=== PATIENT | female | born 1985 | race Caucasian/White ===

== ENCOUNTER 2017-10-11 05:24 | Day surgery (SDC) | payer OTHER ==
[2017-10-10 10:47] LABS: APPEARANCE,URINE CLOUDY; BILIRUBIN,URINE NEGATIVE (NEGATIVE); COLOR,URINE AMBER; GLUCOSE, URINE NEGATIVE (NEGATIVE); KETONES,URINE NEGATIVE (NEGATIVE); LEUKOCYTE ESTERASE,URINE SMALL (NEGATIVE); NITRITE,URINE NEGATIVE (NEGATIVE); PROTEIN,URINE NEGATIVE (NEGATIVE)
[2017-10-10 10:47] LABS: HEMATOCRIT 38.7 % (36.0-47.0); MEAN CORPUSCULAR HGB CONC 33.5 g/dL (32.0-36.0); MEAN CORPUSCULAR VOLUME 87 fl (80-97); PLATELET COUNT 254 10^3/uL (150-450); RED BLOOD COUNT 4.47 10^6/uL (3.72-5.28); RED CELL DISTRIBUTION WIDTH 14.5 % (11.5-14.0); WHITE BLOOD COUNT 8.9 10^3/uL (4.0-10.5)
[~2017-10-11 05:24] MED LIST: LACTATED RINGERS 1000 ML IV PRN; LIDOCAINE 0.5% INJ-PF (5 MG/ML) 50 ML SDV SUBCUT PRN
[2017-10-11] MEDS ORDERED: FENTANYL CITRATE INJ/PF 250 MCG/5 ML AMPULE ONE (07:47)
[2017-10-11] MEDS ORDERED: LIDOCAINE 2% INJ-PF (20 MG/ML) 10 ML AMPUL ONE (07:47)
[2017-10-11] MEDS ORDERED: PROPOFOL INJ 200 MG/20 ML VIAL IV ONE (07:47)
[2017-10-11] MEDS ORDERED: FENTANYL CITRATE INJ/PF 100 MCG/2 ML AMPUL IV PRN ×3 (08:14)
[2017-10-11] MEDS ORDERED: DIPHENHYDRAMINE HCL 50 MG/ML VIAL IV PRN (08:14)
[2017-10-11] MEDS ORDERED: MEPERIDINE HCL/PF INJ 25 MG/1 ML DISP.SYRIN IV PRN (08:14)
[2017-10-11] MEDS ORDERED: ONDANSETRON HCL INJ/PF 4 MG/2 ML SDV IV PRN (08:14)
[2017-10-11] MEDS ORDERED: PROMETHAZINE HCL INJ 25 MG/1 ML VIAL IV PRN ×2 (08:14)
--- NOTE | 2017-10-11 08:31 | Operative Report ---
Operative Report DATE OF SURGERY: 10/11/17 PREOPERATIVE DIAGNOSIS: Cervical incompetence POSTOPERATIVE DIAGNOSIS: Same OPERATION: Sanders cerclage SURGEON: PARIS DELVALLE ANESTHESIA: GA TISSUE REMOVED OR ALTERED: Cervix COMPLICATIONS: None ESTIMATED BLOOD LOSS: 10 cc INTRAOPERATIVE FINDINGS: Normal-appearing cervix PROCEDURE: Patient was taken to the OR and placed in supine position. General anesthesia was induced. She is placed in dorsolithotomy position using Isam stirrups. Perineum and vagina were prepared and draped in sterile fashion. Her bladder was drained with a red rubber catheter. Weighted speculum was placed in the anterior lip cervix grasped with a ring forcep. The bladder reflection was identified. Just below this area assume suture of #1 Ethibond was placed at 12: 00 to 9:00. 9:00 to 6:00. 6:00 to 3:00 and then 3:00 back to 12:00 and tied. This completed a pursestring suture. The cervix felt closed with this suture placement. There was no active bleeding. I felt the suture placement was appropriate and a second suture was not needed.
[2017-10-11] MEDS ORDERED: OXYCODONE-ACETAMINOPHEN 5-325 MG TABLET PO PRN ×2 (08:50→08:51)
[2017-10-11] MEDS ORDERED: RINGERS SOLUTION,LACTATED 1,000 ML IV PRN (08:51)
[2017-10-11] MEDS ORDERED: ACETAMINOPHEN 325 MG TABLET ONE ×2 (08:57→09:10)
--- NOTE | 2017-10-11 09:35 | RADIOLOGY REPORT (SQ) ---
EXAM DESCRIPTION: U/S OB LIMITED COMPLETED DATE/TIME: 10/11/2017 9:25 am REASON FOR STUDY: Cervical Length with FHT O34.32 MATERNAL CARE FOR CERVICAL INCOMPETENCE, SECOND T RIME COMPARISON: None. TECHNIQUE: Limited transabdominal grayscale ultrasound for evaluation of specific requested obstetri ruth ann parameters. LIMITATIONS: None. FINDINGS: CERVICAL LENGTH: 2.4 cm. Closed. FHR: 140 beats per minute. PRESENTATION: Cephalic. OTHER: No other significant findings. IMPRESSION: LIMITED OBSTETRICAL ULTRASOUND WITH MEASURED PARAMETERS DELINEATED ABOVE. Trimester of : Second trimester - 13 weeks 1 day to 27 weeks 6 days. TECHNICAL DOCUMENTATION: JOB ID: [id number] [employer]- All Rights Reserved Reading location - IP/workstation name: [email or web address]
[2017-10-11 10:49] VITALS: BP 122/77
[2017-10-11] MEDS ORDERED: SUCCINYLCHOLINE CHLORIDE INJ 200 MG/10 ML VIAL ONE (15:00)
== END 2017-10-11 10:30 | disposition home or self-care (01) ==
LOC: OROUT 05:24
PROVIDERS: ATTEND Obstetrics & Gynecology
PROC: 0UVC7ZZ Restriction of Cervix, Via Natural or Artificial Opening (ICD-10-PCS; principal; 2017-10-11 08:00)
DX: O34.31 Maternal care for cervical incompetence, first trimester (principal); E28.2 Polycystic ovarian syndrome; F17.210 Nicotine dependence, cigarettes, uncomplicated; Z88.1 Allergy status to other antibiotic agents; Z88.5 Allergy status to narcotic agent
CPT/HCPCS: 36415; 76815; 81001; 82962; 85027; 948; J0330; J2704; J3010; J3490

== ENCOUNTER 2018-03-05 11:45 | Outpatient (CLI) | payer OTHER ==
[2018-03-05 13:03] LABS: APPEARANCE,URINE SLIGHTLY-CLOUDY; BILIRUBIN,URINE NEGATIVE (NEGATIVE); COLOR,URINE YELLOW; GLUCOSE, URINE NEGATIVE (NEGATIVE); KETONES,URINE NEGATIVE (NEGATIVE); LEUKOCYTE ESTERASE,URINE TRACE (NEGATIVE); NITRITE,URINE NEGATIVE (NEGATIVE); PROTEIN,URINE NEGATIVE (NEGATIVE); URINE SPECIFIC GRAVITY 1.013; UROBILINOGEN,URINE NEGATIVE mg/dL (<2.0)
[2018-03-05 13:13] LABS: URINE AMPHETAMINES SCREEN NEGATIVE; URINE BARBITURATES SCREEN NEGATIVE; URINE BENZODIAZEPINES SCREEN NEGATIVE; URINE COCAINE SCREEN NEGATIVE; URINE MARIJUANA (THC) SCREEN NEGATIVE; URINE METHADONE SCREEN NEGATIVE; URINE PHENCYCLIDINE SCREEN NEGATIVE
--- NOTE | 2018-03-05 14:22 | RADIOLOGY REPORT (SQ) ---
EXAM DESCRIPTION: U/S OB LIMITED COMPLETED DATE/TIME: 03/05/2018 2:10 pm REASON FOR STUDY: cerclage in place/ctx COMPARISON: 10/11/2017. TECHNIQUE: Limited transabdominal grayscale ultrasound for evaluation of specific requested obstetri ruth ann parameters. LIMITATIONS: None. FINDINGS: CERVICAL LENGTH: 4.2 cm. Closed. HARSH: Largest pocket 6.3 cm. FHR: 133 beats per minute. PRESENTATION: Cephalic. OTHER: No other significant findings. IMPRESSION: LIMITED OBSTETRICAL ULTRASOUND WITH MEASURED PARAMETERS DELINEATED ABOVE. Trimester of : Third trimester - 28 weeks to delivery. TECHNICAL DOCUMENTATION: JOB ID: [id number] [employer]- All Rights Reserved Reading location - IP/workstation name: [email or web address]
--- NOTE | 2018-03-05 14:23 | L&D Progress Notes ---
PROGRESS NOTES Datetime Report Generated by CPN: 03/05/2018 14:23 PROGRESS NOTE Vital Signs : Reviewed; Within Normal Limits Comment: Cat 1 , no uc's, waiting for CL, if nl will discharge home SIGNATURE SIGNATURE: [id number] Assignment: Suzi Gayle MD Signature: with User ID: [email or web address] : with User ID: [email or web address]
== END 2018-03-05 14:43 | disposition home or self-care (01) ==
LOC: LC 11:45
PROVIDERS: ATTEND Obstetrics & Gynecology
PROC: 4A1HXCZ Monitoring of Products of Conception, Cardiac Rate, External Approach (ICD-10-PCS; principal; 2018-03-05)
DX: O34.33 Maternal care for cervical incompetence, third trimester (principal); Z3A.34 34 weeks gestation of pregnancy
CPT/HCPCS: 59025; 76815; 80307; 81001

== ENCOUNTER 2018-03-12 11:44 | Outpatient (CLI) | payer OTHER ==
--- NOTE | 2018-03-12 11:53 | Non Stress Test Report ---
Non Stress Test Datetime Report Generated by CPN: 03/12/2018 11:52 INDICATION Indication for Study: Diabetes Mellitus VITAL SIGNS Temperature - NST: 98.1 Pulse - NST: 85 RESP - NST: 18 NBPSYS NST: 113 NBPDIA NST: 63 MONITORING Monitor Explained: Monitor Explained; Test Explained; Patient Verbalized Understanding Time on Monitor: 03/05/2018 12:18 Time off Monitor: 03/05/2018 14:19 NST Duration: 121 NST INTERVENTIONS NST Interventions: PO Hydration; Reposition Patient Physician Notified NST: JMolly Aguirre, CNM BABY A: [id number] BABY A Movement : Present Contraction Frequency : 0 FHR Baseline : 130 Accelerations : 15X15 Decelerations : None Variability : Moderate 6-25bpm NST Review: Meets Criteria for Reactive NST NST Review and Verified By : MILIND Zamora Review and Verified By : MILIND Zamora Results: Reactive NST REPORT Report Trigger: Send Report
[2018-03-12 12:32] LABS: APPEARANCE,URINE SLIGHTLY-CLOUDY; BILIRUBIN,URINE NEGATIVE (NEGATIVE); CALCIUM OXALATE CRYSTALS,URINE FEW /HPF; GLUCOSE, URINE 50 mg/dL (NEGATIVE); KETONES,URINE TRACE mg/dL (NEGATIVE); LEUKOCYTE ESTERASE,URINE TRACE (NEGATIVE); NITRITE,URINE NEGATIVE (NEGATIVE); PROTEIN,URINE 30 mg/dL (NEGATIVE); URINE SPECIFIC GRAVITY 1.024
[2018-03-12 12:33] LABS: COLOR,URINE YELLOW
[2018-03-12 12:51] LABS: URINE AMPHETAMINES SCREEN NEGATIVE; URINE BARBITURATES SCREEN NEGATIVE; URINE BENZODIAZEPINES SCREEN NEGATIVE; URINE COCAINE SCREEN NEGATIVE; URINE MARIJUANA (THC) SCREEN NEGATIVE; URINE METHADONE SCREEN NEGATIVE; URINE PHENCYCLIDINE SCREEN NEGATIVE
[2018-03-12 13:43] LABS: BACTERIA (WET MOUNT) 4+ BACTERIA SEEN; EPITHELIALS (WET MOUNT) 4+ EPITHELIALS SEEN; T.VAGINALIS (WET MOUNT) NO TRICHOMONAS SEEN; WBCS (WET MOUNT) 3+ WBCS SEEN; YEAST (WET MOUNT) NO YEAST SEEN
== END 2018-03-12 14:15 | disposition home or self-care (01) ==
LOC: LC 11:44
PROVIDERS: ATTEND Obstetrics & Gynecology
PROC: 4A1HXCZ Monitoring of Products of Conception, Cardiac Rate, External Approach (ICD-10-PCS; principal; 2018-03-12)
DX: O47.03 False labor before 37 completed weeks of gestation, third trimester (principal); Z3A.35 35 weeks gestation of pregnancy
CPT/HCPCS: 59025; 80307; 81001; 87210

== ENCOUNTER 2018-04-07 21:22 | Inpatient (IN) | payer OTHER ==
[2018-04-07] MEDS ORDERED: RINGERS SOLUTION,LACTATED 300 ML IV ONE (21:44)
[2018-04-07] MEDS ORDERED: DINOPROSTONE 10 MG VAGINAL INSERT.SR PV PRN (21:44)
[2018-04-07 22:02] LABS: APPEARANCE,URINE CLEAR; BILIRUBIN,URINE NEGATIVE (NEGATIVE); COLOR,URINE YELLOW; GLUCOSE, URINE NEGATIVE (NEGATIVE); KETONES,URINE NEGATIVE (NEGATIVE); LEUKOCYTE ESTERASE,URINE NEGATIVE (NEGATIVE); NITRITE,URINE NEGATIVE (NEGATIVE); PROTEIN,URINE NEGATIVE (NEGATIVE); URINE SPECIFIC GRAVITY 1.015; UROBILINOGEN,URINE NEGATIVE mg/dL (<2.0)
[2018-04-07 22:17] LABS: URINE AMPHETAMINES SCREEN NEGATIVE; URINE BARBITURATES SCREEN NEGATIVE; URINE BENZODIAZEPINES SCREEN NEGATIVE; URINE COCAINE SCREEN NEGATIVE; URINE MARIJUANA (THC) SCREEN NEGATIVE; URINE METHADONE SCREEN NEGATIVE; URINE PHENCYCLIDINE SCREEN NEGATIVE
[2018-04-07 22:34] LABS: ABSOLUTE EOSINOPHILS # (AUTO) 0.2 10^3/uL (0.0-0.6); ABSOLUTE LYMPHOCYTES (AUTO) 1.7 10^3/uL (0.5-4.7); ABSOLUTE MONOCYTES (AUTO) 0.7 10^3/uL (0.1-1.4); ABSOLUTE NEUT (AUTO) 7.7 10^3/uL (1.7-8.2); BASOPHILS % (AUTO) 0.1 % (0-2); EOSINOPHILS % (AUTO) 1.6 % (0-6); LYMPHOCYTES % (AUTO) 16.6 % (13-45); MEAN CORPUSCULAR HEMOGLOBIN 27.1 pg (27.0-33.4); MEAN CORPUSCULAR HGB CONC 32.3 g/dL (32.0-36.0); MEAN CORPUSCULAR VOLUME 84 fl (80-97); MONOCYTES % (AUTO) 6.9 % (3-13); PLATELET COUNT 281 10^3/uL (150-450); RED BLOOD COUNT 3.69 10^6/uL (3.72-5.28); RED CELL DISTRIBUTION WIDTH 15.5 % (11.5-14.0); SEGMENTED NEUTROPHILS % (AUTO) 74.8 % (42-78); TOTAL CELLS COUNTED % (AUTO) 100 %; WHITE BLOOD COUNT 10.3 10^3/uL (4.0-10.5)
[2018-04-07 22:47] LABS: ALANINE AMINOTRANSFERASE 25 U/L (9-52); ALKALINE PHOSPHATASE 94 U/L (38-126); ANION GAP 10 (5-19); ASPARTATE AMINO TRANSFERASE 15 U/L (14-36); BILIRUBIN,DIRECT 0.2 mg/dL (0.0-0.4); BILIRUBIN,TOTAL 0.3 mg/dL (0.2-1.3); BLOOD UREA NITROGEN 7 mg/dL (7-20); CALCIUM 8.7 mg/dL (8.4-10.2); CARBON DIOXIDE 19 mmol/L (22-30); CHLORIDE 110 mmol/L (98-107); GLUCOSE 96 mg/dL (75-110); SODIUM 139.2 mmol/L (137-145); TOTAL PROTEIN 5.9 g/dL (6.3-8.2)
--- NOTE | 2018-04-07 22:59 | Admission Physical ---
Datetime Report Generated by CPN: 04/07/2018 22:59 CURRENT ADMISSION Chief Complaint: Scheduled Induction of Labor Indication for Induction: Maternal Diabetes Admit Impression : Term, Intrauterine ; No Active Labor; Intact Membranes; Induction of Labor Admit Plan: Admit to Unit; Initiate Labor Induction Protocol; Discharge Home ALLERGIES Medication Allergies: Yes Medication Allergies: morphine/Urticaria (04/07/2018); clindamycin/Urticaria (04/07/2018); nitrofurantoin/VOMITING (04/07/2018) Latex: No Latex Allergies Food Allergies: none Environmental Allergies: none OBSTETRICAL HISTORY EDC: 04/13/2018 00:00 : 4 Para: 1 Term: 1 : 0 SAB: 2 Ectopic: 0 Livin Cesareans: 0 VBACs: 0 Multiple Births: 0 Gestational Diabetes: Yes Rh Sensitization: No Incompetent Cervix: Yes CHEN: No Infertility: No ART Treatment: No Uterine Anomaly: No IUGR: No Hx Previous C/S: No Macrosomia: No Hx Loss/Stillborn: No PIH: No Hx : No Placenta Previa/Abruption: No Depression/PP Depression: No PTL/PROM: No Post Hemorrhage: No Current Procedures: Ultrasound; NST; Cerclage Obstetrical History Comments: G1: 2010 19 weeks G2: 2011 38 weeks Boy 7 lb 2 oz G3: 2014 7 weeks SAB G4: current GDM Diet Controlled SEE RECORDS Alcohol: No Marijuana : No Cocaine: No Other Illicit Drugs: No Cigarettes: Smoker, Current Status Unknown. 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 Heart Disease: No Hosp/Surgery: Yes Autoimmune Disorder: No Anesthetic Complications: No Kidney Disease: No Abnormal Pap Smear: No Neuro/Epilepsy: No Psychiatric Disorders: No Other Medical Diseases: No Hepatitis/Liver Disease: No Significant Family History: No Varicosities/Phlebitis: No Trauma/Violence : No Thyroid Dysfunction: No Medical History Comments: cerclage this , Gastric bypass 2009, PCOS, hospitalized 2 months during last INFECTIOUS HISTORY Gonorrhea: No Genital Herpes: No Chlamydia: No Tuberculosis: No Syphilis: No Hepatitis: No HIV/AIDS Exposure: No Rash or Viral Illness: No HPV: Yes PHYSICAL EXAM General: Normal HEENT: Normal Neurologic: Normal Thyroid: Deferred Heart: Normal Lungs: Normal Breast: Deferred Back: Normal Abdomen: Normal Genitourinary Exam: Normal Extremities: Normal DTRs: Normal Pelvic Type: Adequate Vital Signs: Reviewed VAGINAL EXAM Dilatation: 0 Effacement: 0 Station: -3 Contraction Comments: none MEMBRANES Membranes: Intact FETUS A EGA: 39.1 Monitoring: External US FHR- Baseline: 155 Variability: Moderate 6-25bpm Accelerations: 15X15 Decelerations: None FHR Category: Category I Presentation: Vertex Admit Comment: 32yo at 39+1ega with obesity, A1GDM, and history of delivery/incompetent cervix. Cerclage this and removed on 03/26. H/o second trimester loss due to labor. Admit to labor and delivery and IOL with cervidil. PLANS FOR LABOR AND DELIVERY Labor and Delivery: None Pain Management: Epidural Feeding Preference: Breast Benefit of Breast Feed Discussed: Yes Circumcision: N/A INFORMED CONSENT Informed Consent Obtained: Vaginal Delivery; Induction of Labor; Risks, Benefits and Alternatives Discussed Signature: with User ID: [email or web address]
[2018-04-07] MEDS ORDERED: DINOPROSTONE 10 MG VAGINAL INSERT.SR ONE (23:15)
[2018-04-07] MEDS: RINGERS SOLUTION,LACTATED 1,000 ML IV PRN (23:21)
[2018-04-08] MEDS ORDERED: ZOLPIDEM TARTRATE 5 MG TABLET ONE (02:07)
[2018-04-08] MEDS: ZOLPIDEM TARTRATE 5 MG TABLET PO SCH (02:08)
[2018-04-08] MEDS: RINGERS SOLUTION,LACTATED 1,000 ML IV PRN ×2 (07:27→16:54)
[2018-04-08] MEDS ORDERED: OXYTOCIN/NORMAL SALINE 20 UNIT/1,000 ML RTUINJ IV PRN ×2 (08:00→12:37)
--- NOTE | 2018-04-08 12:36 | L&D Progress Notes ---
PROGRESS NOTES Datetime Report Generated by CPN: 04/08/2018 12:36 PROGRESS NOTE Impression: Reassuring Heart Rate Procedures: Sterile Vag Exam Plan: Induction Plan Other: Start Pitocin to continue with IOL Informed Consent Obtained: Vaginal Delivery; Induction of Labor; Risks, Benefits and Alternatives Discussed Vital Signs : Reviewed; Within Normal Limits Comment: at 39 wks, IOL for GDM, s/p cervidil for cervical ripening. Pt doing well, comfortable, just finished showering and going to eat some lunch. Plan to start Pitocin to continue with IOL. VAGINAL EXAM Dilatation: 1-2 Dilatation: 0 Effacement: 70 Effacement: 0 Station: -3 Station: -3 Contractions: none MEMBRANES Membranes: Intact FETUS A Decelerations: None FHR Category: Category I Presentation: Vertex SIGNATURE SIGNATURE: [id number];[id number];[id number] SIGNATURE: [id number];[id number];[id number] SIGNATURE: [id number];14,[id number] SIGNATURE: [id number];10,[id number] Assignment: Karen Meyer MD Signature: with User ID: [email or web address] : with User ID: [email or web address]
[2018-04-08] MEDS ORDERED: OXYTOCIN/NORMAL SALINE 20 UNIT/1,000 ML RTUINJ ONE (12:37)
--- NOTE | 2018-04-08 16:11 | L&D Progress Notes ---
PROGRESS NOTES Datetime Report Generated by CPN: 04/08/2018 16:10 PROGRESS NOTE Impression: Reassuring Heart Rate Procedures: Sterile Vag Exam Plan: Continue Present Management; Induction Comment: IOL for GDM at 39 wks. Pitocin infusing at 8 mu/min. Pt feeling cramping. VE, no cervical change. Plan to continue with Pitocin, position changes encouraged. VAGINAL EXAM Dilatation: 1-2 Effacement: 70 Station: -3 FETUS A FHR Category: Category III SIGNATURE SIGNATURE: [id number];[id number];10,[id number] Assignment: Karen Meyer MD Signature: with User ID: [email or web address] : with User ID: [email or web address]
[2018-04-08] MEDS ORDERED: DINOPROSTONE 10 MG VAGINAL INSERT.SR ONE (21:52)
[2018-04-08] MEDS ORDERED: DINOPROSTONE 10 MG VAGINAL INSERT.SR PV PRN (21:55)
[2018-04-09] MEDS ORDERED: ZOLPIDEM TARTRATE 5 MG TABLET ONE (02:35)
[2018-04-09] MEDS: ZOLPIDEM TARTRATE 5 MG TABLET PO SCH (02:37)
[2018-04-09] MEDS ORDERED: BUPIVACAINE HCL 0.5 % INJ/PF 30 ML SDV ONE (15:14)
[2018-04-09] MEDS ORDERED: EPHEDRINE SULFATE INJ 50 MG/1 ML AMPULE ONE (15:14)
[2018-04-09] MEDS ORDERED: FENTANYL/BUPIVACAINE/NS/PF 200 MCG/100 ML RTUINJ EPI ONE (15:15)
[2018-04-09] MEDS ORDERED: MISOPROSTOL 0.2 MG TABLET ONE (16:52)
[2018-04-09] MEDS ORDERED: LIDOCAINE 1% INJ-PF (10 MG/ML) 30 ML SDV ONE (16:52)
[2018-04-09] MEDS ORDERED: LIDOCAINE 2% INJ-PF (20 MG/ML) 10 ML AMPUL ONE (19:21)
[2018-04-09] MEDS ORDERED: NALBUPHINE HCL INJ 10 MG/1 ML AMPULE ONE (21:00)
[2018-04-09] MEDS ORDERED: NALBUPHINE HCL INJ 10 MG/1 ML AMPULE INJ ONE (21:07)
--- NOTE | 2018-04-09 21:48 | Delivery Summary ---
Del Sum A-C Datetime Report Generated by CPN: 04/09/2018 21:48 DELIVERY PERSONNEL DELIVERY PERSONNEL: [id number] Delivery Doctor:: Suzi Gayle MD Labor and Delivery Nurse:: Sallie Dumas RNbranch assistant Nurse:: David Gonzalez RN Explosive Ordnance Handler/CRIMINAL RESEARCHER: Cristina Leigh, CRIMINAL RESEARCHER MATERNAL INFORMATION Delivery Anesthesia: Epidural Medications After Delivery: Pitocin Drip 20 Units/1000ml NSS Estimated Blood Loss (ml): 250 Maternal Complications: None LABOR SUMMARY EDC: 04/13/2018 00:00 No. Babies in Womb: 1 Attempted: No Labor Anesthesia: Epidural LABOR INFORMATION Reason for Induction: Other Reason for Induction- Other: GDM-Diet Controlled Onset of Labor: 04/09/2018 12:57 Complete Dilatation: 04/09/2018 17:14 Cervical Ripening Agents: Cervidil Oxytocin: Augmentation Group B Beta Strep: negative MEMBRANES Membranes Rupture Method: Artificial Rupture of Membranes: 04/09/2018 13:51 Length of Rupture (hr): 6.30 Amniotic Fluid Color: Clear Amniotic Fluid Amount: Small Amniotic Fluid Odor: None STAGES OF LABOR Stage 1 hr: 4 Stage 1 min: 17 Stage 2 hr: 2 Stage 2 min: 55 Stage 3 hr: 0 Stage 3 min: 7 Total Time in Labor hr: 7 Total Time in Labor min: 19 VAGINAL DELIVERY Episiotomy: None Laceration #1: Perineal Laceration Extension #1: First Degree Laceration #2: None Laceration Extension #2: N/A Laceration #3: None Laceration Extension #3: N/A Laceration Repair: Yes Laceration Repair Note: small bleeding perineal laceration repaired with 3-0 chromic suture Sponge Count Correct: Vaginal Sweep Performed Sharps Count Correct: Yes CSECTION DELIVERY Primary Indication: N/A Secondary Indication: N/A CSection Incidence: N/A Labor: N/A Elective: N/A CSection Incision: N/A BABY A INFORMATION Delivery Date/Time: 04/09/2018 20:09 Method of Delivery: Vaginal Born in Route : No : N/A Forceps: N/A Vacuum Extraction: N/A Shoulder Dystocia : No PRESENTATION/POSITION BABY A Presentation: Cephalic Cephalic Presentation: Vertex Vertex Position: Right Occipital Anterior Breech Presentation: N/A PLACENTA INFORMATION BABY A Placenta Delivery Time : 04/09/2018 20:16 Placenta Method of Delivery: Spontaneous Placenta Status: Delivered SCORES BABY A Heart Rate 1 min: >100 bpm Resp Effort 1 min: Good Cry Reflex Irritability 1 min: Cough or Sneeze or Pulls Away Muscle Tone 1 min: Active Motion Color 1 min: Blue/Pale Resuscitation Effort 1 min: Tactile Stimulation SCORE 1 MIN: 8 Heart Rate 5 min: >100 bpm Resp Effort 5 min: Good Cry Reflex Irritability 5 min: Cough or Sneeze or Pulls Away Muscle Tone 5 min: Active Motion Color 5 min: Body [place], Extremities Blue Resuscitation Effort 5 min: Tactile Stimulation SCORE 5 MIN: 9 INFORMATION BABY A Gestational Age at Delivery: 39.3 Gestational Status: Full Term- 39- 40.6 Weeks Infant Outcome : Liveborn Condition : Stable Sex: Female IDENTIFICATION BABY A Verification Date/Time: 04/09/2018 20:28 ID Band Number: [id number] Mother's Name Verified: Yes RN Verifying Infant: , RN and TMollyCarlos, RN WEIGHT/LENGTH BABY A Birthweight (gm): 3430 Infant Weight (lb): 7 Infant Weight (oz): 9 Length (in): 20.00 Infant Length (cm): 50.80 CORD INFORMATION BABY A No. Cord Vessels: 3 Nuchal Cord : N/A Cord Blood Taken: Yes-For Eval (Mom's Blood Type - or O+) Infant Suction: None ASSESSMENT BABY A Complications: None Physical Findings at Delivery: Within Normal Limits Respirations: Appears Normal Skin to Skin: Yes Transferred To: Remains with Mother SIGNATURES Signature: with User ID: [email or web address]
[2018-04-10] MEDS ORDERED: DIBUCAINE 1% OINTMENT 28 GM TP PRN ×2 (01:59)
[2018-04-10] MEDS ORDERED: DIPH/PERTUSS(ACELL)/TETANUS VAC/PF 0.5 ML SYR (>=10YO) IM PRN ×2 (01:59)
[2018-04-10] MEDS ORDERED: ACETAMINOPHEN WITH CODEINE #3 TABLET PO PRN ×3 (01:59)
[2018-04-10] MEDS ORDERED: IBUPROFEN 800 MG TABLET PO SCH (01:59)
[2018-04-10] MEDS ORDERED: MEASLES,MUMPS&RUBELLA VACC/PF 0.5 ML VIAL SUBCUT PRN ×2 (01:59)
[2018-04-10] MEDS ORDERED: OXYTOCIN/NORMAL SALINE 20 UNIT/1,000 ML RTUINJ IV PRN (01:59)
[2018-04-10] MEDS ORDERED: BENZOCAINE/MENTHOL AEROSOL SPRAY 56 ML TOP PRN ×2 (01:59)
[2018-04-10] MEDS ORDERED: OXYTOCIN/NORMAL SALINE 1,000 ML IV PRN (01:59)
[2018-04-10] MEDS ORDERED: ZOLPIDEM TARTRATE 5 MG TABLET PO PRN ×2 (01:59)
[2018-04-10 09:20] LABS: HEMATOCRIT 28.4 % (36.0-47.0); HEMOGLOBIN 9.1 g/dL (12.0-15.5); MEAN CORPUSCULAR HEMOGLOBIN 26.7 pg (27.0-33.4); MEAN CORPUSCULAR VOLUME 83 fl (80-97); PLATELET COUNT 268 10^3/uL (150-450); RED CELL DISTRIBUTION WIDTH 15.5 % (11.5-14.0); WHITE BLOOD COUNT 13.2 10^3/uL (4.0-10.5)
[2018-04-10] MEDS: FERROUS SULFATE 325 MG TABLET PO SCH ×2 (09:20→17:33)
[2018-04-10] MEDS: DOCUSATE SODIUM 100 MG CAPSULE PO SCH ×2 (09:20→17:33)
[2018-04-10] MEDS: SENNOSIDES/DOCUSATE 8.6-50 MG 1 EACH TABLET PO SCH (09:20)
[2018-04-10] MEDS: PRENATAL VITAMIN W DHA CAPSULE PO SCH (09:20)
[2018-04-10] MEDS ORDERED: FERROUS SULFATE 325 MG TABLET PO SCH (10:00)
[2018-04-10] MEDS ORDERED: DOCUSATE SODIUM 100 MG CAPSULE PO SCH (10:00)
[2018-04-10] MEDS ORDERED: PRENATAL VITAMIN W DHA CAPSULE PO SCH (10:00)
[2018-04-10] MEDS ORDERED: SENNOSIDES/DOCUSATE 8.6-50 MG 1 EACH TABLET PO SCH (10:00)
--- NOTE | 2018-04-10 10:28 | PDOC PROGRESS REPORT ---
Subjective-OB Progress Note for:: 04/10/18 Subjective: Doing well, sleeping when entering room, no c/o Physical Exam (OB) Vital Signs: Temp Pulse Resp BP Pulse Ox 97.6 F 74 18 126/78 H 97 04/09/18 23:12 04/09/18 23:12 04/09/18 23:12 04/09/18 23:12 04/09/18 23:12 Intake & Output 04/09/18 04/10/18 04/11/18 06:59 06:59 06:59 Intake Total 1999 300 Balance 1999 300 - PIH/Pre-Eclampsia DTR's: 1 + Headache: Absent Epigastric Pain: No Visual Changes: No - Lochia Lochia Amount: Scant < 10 ml Lochia Color: Rubra/Red - Abdomen Description: Tender, Soft Hernia Present: No Fundal Description: Firm, Midline Fundal Height: u/u - u/2 Objective-Diagnostic Laboratory: 04/07/18 22:05 Assessment and Plan(PN) - Assessment and Plan (1) Vaginal delivery Is this a current diagnosis for this admission?: Yes (2) Gestational diabetes mellitus (GDM) in childbirth, diet controlled Is this a current diagnosis for this admission?: Yes - Time Spent with Patient Time with patient: Less than 15 minutes Medications reviewed and adjusted accordingly: Yes - Disposition Anticipated Discharge: Home Within: within 48 hours
[2018-04-10] MEDS: ACETAMINOPHEN WITH CODEINE #3 TABLET PO PRN ×2 (11:23→20:52)
[2018-04-10] MEDS: IBUPROFEN 800 MG TABLET PO SCH ×2 (13:48→22:50)
[2018-04-11] MEDS: IBUPROFEN 800 MG TABLET PO SCH ×3 (06:57→13:11)
[2018-04-11 08:07] LABS: HEMATOCRIT 24.7 % (36.0-47.0); MEAN CORPUSCULAR HEMOGLOBIN 27.3 pg (27.0-33.4); MEAN CORPUSCULAR HGB CONC 32.4 g/dL (32.0-36.0); MEAN CORPUSCULAR VOLUME 84 fl (80-97); PLATELET COUNT 193 10^3/uL (150-450); RED BLOOD COUNT 2.93 10^6/uL (3.72-5.28); RED CELL DISTRIBUTION WIDTH 15.8 % (11.5-14.0); WHITE BLOOD COUNT 9.6 10^3/uL (4.0-10.5)
[2018-04-11 08:21] VITALS: BP 107/54
--- NOTE | 2018-04-11 09:26 | PDOC DISCHARGE SUMMARY ---
Final Diagnosis Discharge Date: 04/11/18 - Final Diagnosis (1) Gestational diabetes mellitus (GDM) in childbirth, diet controlled Is this a current diagnosis for this admission?: Yes (2) Vaginal delivery Is this a current diagnosis for this admission?: Yes Discharge Data - Discharge Medication Home Medications: Pnv No.95/Ferrous Fum/Folic AC [ Multivitamin Tablet] 1 each PO DAILY Esomeprazole Magnesium [Nexium] 1 tab PO DAILY 03/05/18 Loratadine [Claritin 10 mg Tablet] 1 tab PO DAILY 03/05/18 Trazodone HCl 1 tab PO QHS PRN 03/12/18 Reason(s) for Admission: Induction of Labor, Gestional Diabetes Intrapartum Procedure(s): Spontaneous Vaginal Delivery Complication(s): Laceration-Perineal Laceration-Degree: 1st - Diagnosis Test Laboratory: Temp Pulse Resp BP Pulse Ox 98.4 F 74 18 107/54 L 97 04/11/18 07:52 04/11/18 07:52 04/11/18 07:52 04/11/18 07:52 04/11/18 07:52 04/07/18 04/07/18 04/10/18 21:26 22:05 07:07 RBC 3.69 L 3.40 L Hgb 10.0 L 9.1 L Hct 31.0 L 28.4 L Urine Opiates Screen NEGATIVE 04/11/18 07:47 RBC 2.93 L Hgb 8.0 L Hct 24.7 L Urine Opiates Screen - Discharge information/Instructions Discharge Activity: Pelvic Rest, No tub bath Discharge Diet: As Tolerated Disposition: HOME, SELF-CARE Follow up with: [facility] in: 4, Weeks
[2018-04-11] MEDS: SENNOSIDES/DOCUSATE 8.6-50 MG 1 EACH TABLET PO SCH (10:09)
[2018-04-11] MEDS: FERROUS SULFATE 325 MG TABLET PO SCH (10:09)
[2018-04-11] MEDS: PRENATAL VITAMIN W DHA CAPSULE PO SCH (10:09)
[2018-04-11] MEDS: DOCUSATE SODIUM 100 MG CAPSULE PO SCH (10:09)
== END 2018-04-11 16:34 | disposition home or self-care (01) | DRG 775 ==
LOC: LR 21:22 → 2N 04-09 22:35
PROVIDERS: ADMIT Student in an Organized Health Care Education/Training Program; ATTEND Student in an Organized Health Care Education/Training Program
PROC: 4A1HXCZ Monitoring of Products of Conception, Cardiac Rate, External Approach (ICD-10-PCS; 2018-04-07)
PROC: 10E0XZZ Delivery of Products of Conception, External Approach (ICD-10-PCS; principal; 2018-04-09)
PROC: 3E0P7VZ Introduction of Hormone into Female Reproductive, Via Natural or Artificial Opening (ICD-10-PCS; 2018-04-09)
PROC: 10907ZC Drainage of Amniotic Fluid, Therapeutic from Products of Conception, Via Natural or Artificial Opening (ICD-10-PCS; 2018-04-09)
PROC: 0HQ9XZZ Repair Perineum Skin, External Approach (ICD-10-PCS; 2018-04-09)
DX: O24.420 Gestational diabetes mellitus in childbirth, diet controlled (principal); O34.33 Maternal care for cervical incompetence, third trimester; O70.0 First degree perineal laceration during delivery; O99.334 Smoking (tobacco) complicating childbirth; F17.210 Nicotine dependence, cigarettes, uncomplicated; O99.844 Bariatric surgery status complicating childbirth; E28.2 Polycystic ovarian syndrome; O34.83 Maternal care for other abnormalities of pelvic organs, third trimester; Z88.6 Allergy status to analgesic agent; Z88.3 Allergy status to other anti-infective agents; Z3A.39 39 weeks gestation of pregnancy; Z37.0 Single live birth
CPT/HCPCS: 36415; 80053; 80307; 81005; 83615; 84550; 85025; 85027; 86592; 86850; 86900; 86901; 90715; 94760; J2300; J2590; J3490

== ENCOUNTER 2019-11-27 05:27 | Day surgery (SDC) | payer MEDICAID, OTHER ==
[2019-11-27 06:06] LABS: APPEARANCE,URINE CLOUDY; BILIRUBIN,URINE NEGATIVE (NEGATIVE); COLOR,URINE YELLOW; GLUCOSE, URINE NEGATIVE (NEGATIVE); KETONES,URINE NEGATIVE (NEGATIVE); LEUKOCYTE ESTERASE,URINE MODERATE (NEGATIVE); NITRITE,URINE NEGATIVE (NEGATIVE); PROTEIN,URINE NEGATIVE (NEGATIVE); UROBILINOGEN,URINE NEGATIVE mg/dL (<2.0)
[2019-11-27 06:08] LABS: ABSOLUTE EOSINOPHILS # (AUTO) 0.2 10^3/uL (0.0-0.6); ABSOLUTE LYMPHOCYTES (AUTO) 1.9 10^3/uL (0.5-4.7); ABSOLUTE MONOCYTES (AUTO) 0.5 10^3/uL (0.1-1.4); ABSOLUTE NEUT (AUTO) 6.9 10^3/uL (1.7-8.2); BASOPHILS % (AUTO) 0.4 % (0-2); EOSINOPHILS % (AUTO) 1.6 % (0-6); HEMATOCRIT 38.2 % (36.0-47.0); HEMOGLOBIN 13.4 g/dL (12.0-15.5); LYMPHOCYTES % (AUTO) 20.4 % (13-45); MEAN CORPUSCULAR HEMOGLOBIN 31.6 pg (27.0-33.4); MEAN CORPUSCULAR HGB CONC 35.2 g/dL (32.0-36.0); MEAN CORPUSCULAR VOLUME 90 fl (80-97); MONOCYTES % (AUTO) 5.3 % (3-13); PLATELET COUNT 277 10^3/uL (150-450); RED BLOOD COUNT 4.24 10^6/uL (3.72-5.28); RED CELL DISTRIBUTION WIDTH 14.3 % (11.5-14.0); SEGMENTED NEUTROPHILS % (AUTO) 72.3 % (42-78); TOTAL CELLS COUNTED % (AUTO) 100 %; WHITE BLOOD COUNT 9.5 10^3/uL (4.0-10.5)
[2019-11-27] MEDS ORDERED: ONDANSETRON HCL INJ/PF 4 MG/2 ML SDV ONE (07:01)
[2019-11-27] MEDS ORDERED: MIDAZOLAM 2 MG/2 ML INJ ONE (07:01)
[2019-11-27] MEDS ORDERED: FENTANYL CITRATE INJ/PF 100 MCG/2 ML AMPUL ONE (07:01)
[2019-11-27] MEDS ORDERED: OXYCODONE-ACETAMINOPHEN 5-325 MG TABLET PO PRN ×2 (07:57→08:12)
[2019-11-27] MEDS ORDERED: PROMETHAZINE HCL INJ 25 MG/1 ML VIAL IV PRN (07:57)
[2019-11-27] MEDS ORDERED: ONDANSETRON HCL INJ/PF 4 MG/2 ML SDV IV PRN (07:57)
[2019-11-27] MEDS ORDERED: DIPHENHYDRAMINE HCL 50 MG/ML VIAL IV PRN (07:57)
[2019-11-27] MEDS ORDERED: FENTANYL CITRATE INJ/PF 100 MCG/2 ML AMPUL IV PRN (07:57)
[2019-11-27] MEDS ORDERED: RINGERS SOLUTION,LACTATED 1,000 ML IV PRN (08:12)
--- NOTE | 2019-11-27 08:19 | Operative Report ---
Operative Report DATE OF SURGERY: 11/27/19 PREOPERATIVE DIAGNOSIS: History of incompetent cervix POSTOPERATIVE DIAGNOSIS: Same OPERATION: Sanders cerclage SURGEON: PARIS DELVALLE ANESTHESIA: Spinal TISSUE REMOVED OR ALTERED: Cervix COMPLICATIONS: None ESTIMATED BLOOD LOSS: 10 cc INTRAOPERATIVE FINDINGS: Normal-appearing cervix without lesions PROCEDURE: Patient voided before going back and then was taken to the OR. A spinal was placed. She is placed in dorsolithotomy position using Isma stirrups. Her vagina and perineum were prepared and draped in sterile fashion. A speculum was placed in the vagina. The cervix was once again prepped with Betadine. The end of the cervix was grasped with ring clamps. The scars from the previous cerclage could be easily seen at 12 3 6 and 9:00. Using Ethibond suture a cerclage was placed starting at 12:00 to 9:00 9:00 to 6:00 6:00 3:00 3:00 back to 12:00 and tied. The suture appeared to be in appropriate placement. It was deemed only one suture was needed as the placement was good. All instruments were removed. She is placed back in supine position and taken recovery in stable condition.
--- NOTE | 2019-11-27 08:21 | Discharge Summary ---
Discharge Summary (SDC) - Discharge Final Diagnosis: History of incompetent cervix Date of Surgery: 11/27/19 Discharge Date: 11/27/19 Condition: Good Referrals: DAVIAN ORTEGA PA-C [Primary Care Provider] - Discharge Diet: Regular Discharge Activity: Activity As Tolerated, Pelvic Rest Home Care Assistance: None Needed Report the Following to Your Physician Immediately: Fever over 101 Degrees, Unusual Bleeding
--- NOTE | 2019-11-27 10:46 | RADIOLOGY REPORT (SQ) ---
EXAM DESCRIPTION: U/S OB LIMITED IMAGES COMPLETED DATE/TIME: 11/27/2019 9:45 am REASON FOR STUDY: check fht and cerclage O34.30 MATERNAL CARE FOR CERVICAL INCOMPETENCE, UNSP TRIM EST COMPARISON: None. TECHNIQUE: Limited transabdominal and trans labial grayscale ultrasound for evaluation of specific r equested obstetrical parameters. LIMITATIONS: Limited exam due to body habitus FINDINGS: CERVICAL LENGTH: 2.8 Closed. HARSH: not assessed cm. FHR: 150 beats per minute. PRESENTATION: Transverse. PLACENTA: Not assessed ANATOMY: Not assessed OTHER: No other significant findings. IMPRESSION: Limited exam. Positive heart tones of 150 beats per minute. Cervical length of 2.8 cm. Limited views of the cerclage which appears in expected location. Trimester of : Second trimester - 13 weeks 1 day to 27 weeks 6 days. TECHNICAL DOCUMENTATION: JOB ID: [id number] 2010 [employer]- All Rights Reserved Reading location - IP/workstation name: [email or web address]
[2019-11-27 12:07] VITALS: BP 133/71
== END 2019-11-27 11:45 | disposition home or self-care (01) ==
LOC: OROUT 05:27
PROVIDERS: ATTEND Obstetrics & Gynecology
PROC: 0UVC7ZZ Restriction of Cervix, Via Natural or Artificial Opening (ICD-10-PCS; principal; 2019-11-27 07:30)
DX: O34.31 Maternal care for cervical incompetence, first trimester (principal); O16.1 Unspecified maternal hypertension, first trimester; O99.841 Bariatric surgery status complicating pregnancy, first trimester; Z87.891 Personal history of nicotine dependence; Z3A.00 Weeks of gestation of pregnancy not specified; Z88.6 Allergy status to analgesic agent; Z88.1 Allergy status to other antibiotic agents; Z91.013 Allergy to seafood
CPT/HCPCS: 59320; 36415; 85025; 81001; 76815; J2250; 948; J2405; J3010

== ENCOUNTER 2020-02-29 17:18 | Outpatient (CLI) | payer MEDICAID ==
[2020-02-29 18:27] LABS: APPEARANCE,URINE CLOUDY; BILIRUBIN,URINE SMALL (NEGATIVE); CALCIUM OXALATE CRYSTALS,URINE MODERATE /HPF; COLOR,URINE AMBER; GLUCOSE, URINE 150 mg/dL (NEGATIVE); KETONES,URINE TRACE mg/dL (NEGATIVE); LEUKOCYTE ESTERASE,URINE NEGATIVE (NEGATIVE); NITRITE,URINE NEGATIVE (NEGATIVE); PROTEIN,URINE 30 mg/dL (NEGATIVE); URINE SPECIFIC GRAVITY 1.032
[2020-02-29 18:41] LABS: URINE AMPHETAMINES SCREEN NEGATIVE; URINE BARBITURATES SCREEN NEGATIVE; URINE BENZODIAZEPINES SCREEN NEGATIVE; URINE COCAINE SCREEN NEGATIVE; URINE MARIJUANA (THC) SCREEN NEGATIVE; URINE METHADONE SCREEN NEGATIVE; URINE PHENCYCLIDINE SCREEN NEGATIVE
--- NOTE | 2020-02-29 19:08 | RADIOLOGY REPORT (SQ) ---
EXAM DESCRIPTION: U/S OB LIMITED IMAGES COMPLETED DATE/TIME: 02/29/2020 6:51 pm REASON FOR STUDY: Cervical Length COMPARISON: 11/27/2019 TECHNIQUE: Limited transabdominal grayscale ultrasound for evaluation of specific requested obstetri ruth ann parameters. LIMITATIONS: None. FINDINGS: CERVICAL LENGTH: 3 cm. Closed. HARSH: 14.9 cm. Cm. FHR: 143 beats per minute. PRESENTATION: Cephalic. PLACENTA: Anterior ANATOMY: Not assessed OTHER: Intrauterine gestation of 27 weeks 6 days. IMPRESSION: LIMITED OBSTETRICAL ULTRASOUND WITH MEASURED PARAMETERS DELINEATED ABOVE. Trimester of : Second trimester - 13 weeks 1 day to 27 weeks 6 days. TECHNICAL DOCUMENTATION: JOB ID: [id number] 2010 [employer]- All Rights Reserved Reading location - IP/workstation name: [email or web address]
== END 2020-02-29 19:20 | disposition home or self-care (01) ==
LOC: LC 17:18
PROVIDERS: ATTEND Obstetrics & Gynecology
DX: Z36.89 Encounter for other specified antenatal screening (principal); Z3A.27 27 weeks gestation of pregnancy; Z88.1 Allergy status to other antibiotic agents; Z88.6 Allergy status to analgesic agent
CPT/HCPCS: 76815; 80307; 81001

== ENCOUNTER 2020-05-04 16:08 | Outpatient (CLI) | payer MEDICAID ==
[2020-05-04 16:51] LABS: APPEARANCE,URINE SLIGHTLY-CLOUDY; BILIRUBIN,URINE NEGATIVE (NEGATIVE); COLOR,URINE YELLOW; GLUCOSE, URINE NEGATIVE (NEGATIVE); KETONES,URINE 20 mg/dL (NEGATIVE); LEUKOCYTE ESTERASE,URINE NEGATIVE (NEGATIVE); NITRITE,URINE NEGATIVE (NEGATIVE); PROTEIN,URINE NEGATIVE (NEGATIVE); URINE SPECIFIC GRAVITY 1.015
[2020-05-04 16:54] LABS: ABSOLUTE EOSINOPHILS # (AUTO) 0.1 10^3/uL (0.0-0.6); ABSOLUTE MONOCYTES (AUTO) 0.6 10^3/uL (0.1-1.4); ABSOLUTE NEUT (AUTO) 6.1 10^3/uL (1.7-8.2); BASOPHILS % (AUTO) 0.2 % (0-2); EOSINOPHILS % (AUTO) 1.2 % (0-6); LYMPHOCYTES % (AUTO) 22.6 % (13-45); MEAN CORPUSCULAR HEMOGLOBIN 28.2 pg (27.0-33.4); MEAN CORPUSCULAR HGB CONC 33.3 g/dL (32.0-36.0); MEAN CORPUSCULAR VOLUME 85 fl (80-97); MONOCYTES % (AUTO) 7.2 % (3-13); PLATELET COUNT 327 10^3/uL (150-450); RED BLOOD COUNT 3.89 10^6/uL (3.72-5.28); RED CELL DISTRIBUTION WIDTH 15.4 % (11.5-14.0); SEGMENTED NEUTROPHILS % (AUTO) 68.8 % (42-78); TOTAL CELLS COUNTED % (AUTO) 100 %; WHITE BLOOD COUNT 8.8 10^3/uL (4.0-10.5)
[2020-05-04 17:03] LABS: URINE AMPHETAMINES SCREEN NEGATIVE; URINE BARBITURATES SCREEN NEGATIVE; URINE BENZODIAZEPINES SCREEN NEGATIVE; URINE COCAINE SCREEN NEGATIVE; URINE MARIJUANA (THC) SCREEN NEGATIVE; URINE METHADONE SCREEN NEGATIVE; URINE PHENCYCLIDINE SCREEN NEGATIVE
[2020-05-04 17:08] LABS: UR PRO/CREAT RATIO RESULT 0.1 mg/mg (0.0-0.2); URINE CREATININE 174.9 mg/dL (16-327); URINE PROTEIN 8.9 mg/dL (<12)
[2020-05-04 17:19] LABS: ALBUMIN 3.1 g/dL (3.5-5.0); ALKALINE PHOSPHATASE 200 U/L (38-126); ANION GAP 8 (5-19); ASPARTATE AMINO TRANSFERASE 23 U/L (14-36); BILIRUBIN,DIRECT 0.3 mg/dL (0.0-0.4); BILIRUBIN,TOTAL 0.5 mg/dL (0.2-1.3); BLOOD UREA NITROGEN 4 mg/dL (7-20); CALCIUM 8.5 mg/dL (8.4-10.2); CARBON DIOXIDE 19 mmol/L (22-30); CHLORIDE 106 mmol/L (98-107); GLUCOSE 97 mg/dL (75-110); POTASSIUM 4.3 mmol/L (3.6-5.0); TOTAL PROTEIN 5.9 g/dL (6.3-8.2); URIC ACID 6.5 mg/dL (2.5-6.2)
--- NOTE | 2020-05-04 17:46 | Non Stress Test Report ---
Non Stress Test Datetime Report Generated by CPN: 05/04/2020 17:45 DEMOGRAPHIC EGA NST: 37.0 INDICATION Indication for Study (NST) Other: IUP at 37.0, elevated BP VITAL SIGNS Temperature - NST: 98.8 Pulse - NST: 129 RESP - NST: 19 NBPSYS NST: 140 NBPDIA NST: 89 URINE RESULTS Urine Protein, NST: Negative Urine Ketones - NST: Positive Urine Glucose - NST: Negative Urine Blood - NST: Negative MONITORING Monitor Explained: Monitor Explained; Test Explained; Patient Verbalized Understanding Time on Monitor: 05/04/2020 16:24 Time off Monitor: 05/04/2020 16:44 NST Duration: 20 NST INTERVENTIONS NST Interventions: PO Hydration Physician Notified NST: C. Barrera, CNM BABY A: [id number] BABY A Movement : Present Contraction Frequency : NA FHR Baseline : 155 Accelerations : 15X15 Decelerations : None Variability : Moderate 6-25bpm NST Review: Meets Criteria for Reactive NST NST Review and Verified By : Yvonne, RN NST Results: Reactive NST REPORT Report Trigger: Send Report
== END 2020-05-04 17:35 | disposition home or self-care (01) ==
LOC: LC 16:08
PROVIDERS: ATTEND Obstetrics & Gynecology
DX: O16.3 Unspecified maternal hypertension, third trimester (principal); Z3A.37 37 weeks gestation of pregnancy; Z88.1 Allergy status to other antibiotic agents; Z88.6 Allergy status to analgesic agent
CPT/HCPCS: 36415; 80053; 80307; 81001; 82570; 83615; 84156; 84550; 85025

== ENCOUNTER 2020-05-09 06:11 | Inpatient (IN) | payer MEDICAID ==
[2020-05-09 06:42] LABS: APPEARANCE,URINE SLIGHTLY-CLOUDY; BILIRUBIN,URINE NEGATIVE (NEGATIVE); COLOR,URINE YELLOW; GLUCOSE, URINE NEGATIVE (NEGATIVE); KETONES,URINE TRACE mg/dL (NEGATIVE); LEUKOCYTE ESTERASE,URINE NEGATIVE (NEGATIVE); NITRITE,URINE NEGATIVE (NEGATIVE); PROTEIN,URINE 30 mg/dL (NEGATIVE); URINE SPECIFIC GRAVITY 1.014
[2020-05-09] MEDS ORDERED: RINGERS SOLUTION,LACTATED 1,000 ML IV ONE (06:55)
[2020-05-09] MEDS ORDERED: PENICILLIN G POTASSIUM 5,000,000 UNIT in DEXTROSE 5%-WATER 100 ML IV ONE (06:55)
[2020-05-09] MEDS ORDERED: RINGERS SOLUTION,LACTATED 1,000 ML IV PRN (06:55)
[2020-05-09 06:57] LABS: URINE AMPHETAMINES SCREEN NEGATIVE; URINE BARBITURATES SCREEN NEGATIVE; URINE BENZODIAZEPINES SCREEN NEGATIVE; URINE COCAINE SCREEN NEGATIVE; URINE MARIJUANA (THC) SCREEN NEGATIVE; URINE METHADONE SCREEN NEGATIVE; URINE PHENCYCLIDINE SCREEN NEGATIVE
[2020-05-09] MEDS ORDERED: OXYTOCIN 10 UNIT/ML VIAL ONE (07:11)
[2020-05-09] MEDS ORDERED: EPHEDRINE SULFATE INJ 50 MG/1 ML AMPULE ONE (07:11)
[2020-05-09] MEDS ORDERED: MISOPROSTOL 0.2 MG TABLET ONE (07:11)
[2020-05-09] MEDS ORDERED: PENICILLIN G-K 5 MILLION UNIT VIAL ONE ×2 (07:11→15:37)
[2020-05-09] MEDS ORDERED: OXYTOCIN/0.9 % SODIUM CHLORIDE 30 UNIT/500 ML RTUINJ ONE (07:12)
[2020-05-09] MEDS ORDERED: ROPIVACAINE HCL 0.2% INJ/PF (2 MG/ML) 20 ML SDV ONE (07:12)
[2020-05-09] MEDS ORDERED: FENTANYL/BUPIVACAINE/NS/PF 300 MCG/150 ML RTUINJ EPI ONE (07:12)
[2020-05-09] MEDS ORDERED: LIDOCAINE 1% INJ-PF (10 MG/ML) 30 ML SDV ONE (07:12)
--- NOTE | 2020-05-09 07:55 | Admission Physical ---
Datetime Report Generated by CPN: 05/09/2020 07:55 CURRENT ADMISSION Chief Complaint: Suspected Ruptured Membranes Indication for Induction: Not Applicable Admit Impression : Term, Intrauterine ; Ruptured Membranes Admit Plan: Admit to Unit ALLERGIES Medication Allergies: Yes Medication Allergies: morphine/Urticaria (05/04/2020); clindamycin/Urticaria (05/04/2020); nitrofurantoin/VOMITING (05/04/2020) Latex: No Latex Allergies OBSTETRICAL HISTORY EDC: 05/25/2020 00:00 : 5 Para: 2 Term: 2 : 0 SAB: 2 IAB: 0 Ectopic: 0 Livin Cesareans: 0 VBACs: 0 Multiple Births: 0 Gestational Diabetes: No Rh Sensitization: No Incompetent Cervix: No CHEN: No Infertility: No ART Treatment: No Uterine Anomaly: No IUGR: No Hx Previous C/S: No Macrosomia: No Hx Loss/Stillborn: No PIH: No Hx : No Placenta Previa/Abruption: No Depression/PP Depression: No PTL/PROM: No Post Hemorrhage: No Current Procedures: Ultrasound; NST SEE RECORDS Alcohol: No Marijuana : No Cocaine: No Other Illicit Drugs: No Cigarettes: Former Smoker. [id number] MEDICAL HISTORY Diabetes: No Blood Transfusion: No Pulmonary Disease (Asthma, TB): No Breast Disease: No Hypertension: No Clinical Trial Specialist Surgery: No Heart Disease: No Hosp/Surgery: No Autoimmune Disorder: No Anesthetic Complications: No Kidney Disease: No Abnormal Pap Smear: No Neuro/Epilepsy: No Psychiatric Disorders: No Other Medical Diseases: No Hepatitis/Liver Disease: No Significant Family History: No Varicosities/Phlebitis: No Trauma/Violence : No Thyroid Dysfunction: No Medical History Comments: Cerclage removed 04/29/20, Gastric bypass 2009 INFECTIOUS HISTORY Gonorrhea: No Genital Herpes: No Chlamydia: No Tuberculosis: No Syphilis: No Hepatitis: No HIV/AIDS Exposure: No Rash or Viral Illness: No HPV: No PHYSICAL EXAM General: Normal HEENT: Normal Neurologic: Normal Thyroid: Normal Heart: Normal Lungs: Normal Breast: Deferred Back: Normal Abdomen: Normal Genitourinary Exam: Normal Extremities: Normal DTRs: Normal Pelvic Type: Adequate Vital Signs: Reviewed VAGINAL EXAM Dilatation: 5 Effacement: 80 Station: -2 MEMBRANES Pooling: Positive Membranes: Ruptured FETUS A EGA: 37.5 Monitoring: External US FHR- Baseline: 120 Variability: Moderate 6-25bpm FHR Category: Category I Estimated Weight (gm): 3800 Presentation: Vertex PLANS FOR LABOR AND DELIVERY Labor and Delivery: None Pain Management: Epidural Feeding Preference: Breast Benefit of Breast Feed Discussed: Yes Circumcision: Yes INFORMED CONSENT Signature: with User ID: [email or web address]
[2020-05-09 07:59] LABS: ABSOLUTE EOSINOPHILS # (AUTO) 0.1 10^3/uL (0.0-0.6); ABSOLUTE LYMPHOCYTES (AUTO) 1.7 10^3/uL (0.5-4.7); ABSOLUTE MONOCYTES (AUTO) 0.5 10^3/uL (0.1-1.4); ABSOLUTE NEUT (AUTO) 5.4 10^3/uL (1.7-8.2); BASOPHILS % (AUTO) 0.3 % (0-2); EOSINOPHILS % (AUTO) 1.3 % (0-6); HEMATOCRIT 28.2 % (36.0-47.0); HEMOGLOBIN 9.5 g/dL (12.0-15.5); LYMPHOCYTES % (AUTO) 22.7 % (13-45); MEAN CORPUSCULAR HEMOGLOBIN 28.2 pg (27.0-33.4); MEAN CORPUSCULAR HGB CONC 33.8 g/dL (32.0-36.0); MEAN CORPUSCULAR VOLUME 83 fl (80-97); MONOCYTES % (AUTO) 5.9 % (3-13); PLATELET COUNT 277 10^3/uL (150-450); RED BLOOD COUNT 3.39 10^6/uL (3.72-5.28); RED CELL DISTRIBUTION WIDTH 15.2 % (11.5-14.0); SEGMENTED NEUTROPHILS % (AUTO) 69.8 % (42-78); TOTAL CELLS COUNTED % (AUTO) 100 %; WHITE BLOOD COUNT 7.7 10^3/uL (4.0-10.5)
[2020-05-09] MEDS ORDERED: ONDANSETRON HCL INJ/PF 4 MG/2 ML SDV ONE (09:11)
[2020-05-09] MEDS ORDERED: ONDANSETRON HCL INJ/PF 4 MG/2 ML SDV IV ONE (09:11)
[2020-05-09] MEDS: PENICILLIN G POTASSIUM 2,500,000 UNIT in DEXTROSE 5%-WATER 50 ML IV SCH ×3 (11:08→19:24)
[2020-05-09] MEDS ORDERED: PROMETHAZINE HCL INJ 25 MG/1 ML VIAL IV ONE (15:28)
[2020-05-09] MEDS ORDERED: PROMETHAZINE HCL INJ 25 MG/1 ML VIAL ONE (15:32)
[2020-05-09] MEDS ORDERED: DIBUCAINE 1% OINTMENT 28 GM TP PRN (17:26)
[2020-05-09] MEDS ORDERED: PROMETHAZINE HCL 25 MG SUPP.RECT PR PRN (17:26)
[2020-05-09] MEDS ORDERED: PROMETHAZINE HCL 25 MG TABLET PO PRN (17:26)
[2020-05-09] MEDS ORDERED: MEASLES,MUMPS&RUBELLA VACC/PF 0.5 ML VIAL SUBCUT PRN (17:26)
[2020-05-09] MEDS ORDERED: PROMETHAZINE HCL INJ 25 MG/1 ML VIAL IV PRN (17:26)
[2020-05-09] MEDS ORDERED: ACETAMINOPHEN 650 MG SUPP.RECT PR PRN (17:26)
[2020-05-09] MEDS ORDERED: DIPH/PERTUSS(ACELL)/TETANUS VAC/PF 0.5 ML SYR (>=10YO) IM PRN (17:26)
[2020-05-09] MEDS ORDERED: DIPHENHYDRAMINE HCL 25 MG CAPSULE PO PRN (17:26)
[2020-05-09] MEDS ORDERED: GLYCERIN/WITCH HAZEL LEAF 1 EACH MED..WIPE TP PRN (17:26)
[2020-05-09] MEDS ORDERED: ZOLPIDEM TARTRATE 5 MG TABLET PO PRN (17:26)
[2020-05-09] MEDS ORDERED: OXYTOCIN/0.9 % SODIUM CHLORIDE 30 UNIT/500 ML RTUINJ IV PRN (17:26)
[2020-05-09] MEDS ORDERED: PSEUDOEPHEDRINE HCL 30 MG TABLET PO PRN (17:26)
[2020-05-09] MEDS ORDERED: NA PHOS,M-B/NA PHOS,DI-BA (ADULT) 133 ML ENEMA PR PRN (17:26)
[2020-05-09] MEDS ORDERED: BENZOCAINE/MENTHOL AEROSOL SPRAY 56 ML TOP PRN (17:26)
[2020-05-09] MEDS ORDERED: MAGNESIUM HYDROXIDE SUSP 30 ML UDCUP PO PRN (17:26)
[2020-05-09] MEDS ORDERED: ACETAMINOPHEN WITH CODEINE #3 TABLET ONE (17:32)
[2020-05-09] MEDS: ACETAMINOPHEN WITH CODEINE #3 TABLET PO PRN (17:35)
[2020-05-09] MEDS ORDERED: HYDRALAZINE HCL INJ/PF 20 MG/1 ML SDV ONE (18:20)
[2020-05-09] MEDS: FERROUS SULFATE 325 MG TABLET PO SCH (18:28)
[2020-05-09] MEDS: DOCUSATE SODIUM 100 MG CAPSULE PO SCH (18:29)
[2020-05-09] MEDS ORDERED: MAGNESIUM SULFATE 4 GM/100 ML RTUPB IV ONE ×2 (18:46→18:49)
[2020-05-09] MEDS ORDERED: MAGNESIUM SULFATE 20 GM/500 ML RTUINJ IV PRN (18:46)
[2020-05-09] MEDS ORDERED: MAGNESIUM SULFATE 20 GM/500 ML RTUINJ IV ONE (18:49)
[2020-05-09 19:12] LABS: ABSOLUTE LYMPHOCYTES (AUTO) 0.9 10^3/uL (0.5-4.7); ABSOLUTE MONOCYTES (AUTO) 0.6 10^3/uL (0.1-1.4); ABSOLUTE NEUT (AUTO) 13.3 10^3/uL (1.7-8.2); BASOPHILS % (AUTO) 0.1 % (0-2); HEMATOCRIT 29.9 % (36.0-47.0); MEAN CORPUSCULAR HEMOGLOBIN 27.9 pg (27.0-33.4); MEAN CORPUSCULAR HGB CONC 33.3 g/dL (32.0-36.0); MEAN CORPUSCULAR VOLUME 84 fl (80-97); MONOCYTES % (AUTO) 3.9 % (3-13); PLATELET COUNT 287 10^3/uL (150-450); RED BLOOD COUNT 3.57 10^6/uL (3.72-5.28); RED CELL DISTRIBUTION WIDTH 15.2 % (11.5-14.0); TOTAL CELLS COUNTED % (AUTO) 100 %; WHITE BLOOD COUNT 14.8 10^3/uL (4.0-10.5)
[2020-05-09 19:32] LABS: ALBUMIN 2.8 g/dL (3.5-5.0); ALKALINE PHOSPHATASE 185 U/L (38-126); ANION GAP 10 (5-19); ASPARTATE AMINO TRANSFERASE 25 U/L (14-36); BILIRUBIN,DIRECT 0.2 mg/dL (0.0-0.4); BILIRUBIN,TOTAL 0.7 mg/dL (0.2-1.3); BLOOD UREA NITROGEN 7 mg/dL (7-20); CALCIUM 8.6 mg/dL (8.4-10.2); CARBON DIOXIDE 16 mmol/L (22-30); CHLORIDE 108 mmol/L (98-107); GLUCOSE 152 mg/dL (75-110); POTASSIUM 4.4 mmol/L (3.6-5.0); TOTAL PROTEIN 5.4 g/dL (6.3-8.2); URIC ACID 6.2 mg/dL (2.5-6.2)
--- NOTE | 2020-05-09 19:39 | Warning Signs in Babies ---
VOD Warning Signs Datetime Report Generated by [facility]: 05/09/2020 19:39 VOD#608 -Warning Signs in Babies: Needs to be viewed. (02/29/2020 17:49:Kiana Machado RN)
--- NOTE | 2020-05-09 19:45 | Birth Certificate Data ---
Cert Data Datetime Report Generated by CPMan: 05/09/2020 19:45 CERTIFICATE DATA 47a. Care: Yes (02/29/2020 17:49:Kiana Machado RN) 47b. Date of First Visit: 11/17/2019 00:00 (02/29/2020 17:49:Kiana Machado RN) 47c. Date of Last Visit: 05/04/2020 00:00 (02/29/2020 17:49:Kiana Machado RN) 47d. Number of Visits: 10 (02/29/2020 17:49:Kaina Machado RN) 48a. Number of Prev Live Births: 2 (02/29/2020 17:49:Kiana Machado RN) 48b. Now Livin (02/29/2020 17:49:Tabitha Joshi RN) 48c. Live Births Now : 0 (02/29/2020 17:49:QS system process) 48e. Losses: 2 (02/29/2020 17:49:Kiana Machado RN) RISK FACTORS IN THIS 49a. Diabetes: Yes (02/29/2020 17:49:Kiana Machado RN) Type of Diabetes: Gestational Diabetes (02/29/2020 17:49:Kiana Machado RN) 49b. Hypertension: No (02/29/2020 17:49:Dara Zamora RN) 49c. Previous Births: 0 (02/29/2020 17:49:Lauren Zee RN) 49d. Stillborns: No (02/29/2020 17:49:Dara Zamora RN) 49d. IUGR: No (02/29/2020 17:49:Dara Zamora RN) 49e. Infertility Treatment: No (02/29/2020 17:49:Dara Zamora RN) 49f. Previous Cesareans: 0 (02/29/2020 17:49:Kiana Machado RN) Mother's Height 50b. Height Inches: 64 (05/09/2020 06:25:QS system process) Mother's Weight 51a. Pre- Weight (lbs): 250 (02/29/2020 17:49:Kiana Machado RN) 51b. Weight at Delivery (lbs): 299 (05/09/2020 06:25:QS system process) Infections Present/Treated 53a. Gonorrhea: No (02/29/2020 17:49:Dara Zamroa RN) Results this Hospital Visit : Negative (02/29/2020 17:49:Nevaeh Pratt RN) 53b. Syphilis: No (02/29/2020 17:49:Dara Zamora RN) Results this Hospital Visit: NONREACTIVE (05/09/2020 07:28:QS system process) 53c. Chlamydia: No (02/29/2020 17:49:Dara Zamora RN) Results this Hospital Visit: Negative (02/29/2020 17:49:Nevaeh Pratt RN) 53d. Hepatitis B: No (02/29/2020 17:49:Dara Zamora RN) Results this Hospital Visit: Negative (02/29/2020 17:49:Nevaeh Pratt RN) 53e. Hepatitis C: Negative (02/29/2020 17:49:RAJAN Scott) 53h. Mother Tested for HBsAG: Yes (02/29/2020 17:49:Nevaeh Pratt RN) 53i. Date Tested: 11/17/2019 00:00 (02/29/2020 17:49:Nevaeh Pratt RN) 53j. Test Result: Negative (02/29/2020 17:49:Nevaeh Pratt RN) Obstetric Procedures 54a, b, c. Obstetric Procedures: Ultrasound; NST (02/29/2020 17:49:Dara Zaomra RN) Cigarette Smoking Cigarette Smoking: Former Smoker. [id number] (02/29/2020 17:49:Kiana Machado RN) 55a. 3 Months Before Preg - Ci (02/29/2020 17:49:Kiana Machado RN) 55b. 1st Trimester of Preg- Ci (02/29/2020 17:49:Kiana Machado RN) 55c. 2nd Trimester of Preg- Ci (02/29/2020 17:49:Kiana Machado RN) 55d. 3rd Trimester of Preg- Ci (02/29/2020 17:49:Kiana Machado RN) Onset of Labor 56a. PROM >12 Hrs: 11.42 (02/29/2020 17:49:QS system process) 56b. Precipitous Labor <3 Hrs: 10 (02/29/2020 17:49:QS system process) 56c. Prolonged Labor > 20 Hrs: 10 (02/29/2020 17:49:QS system process) 57a. Induction of Labor: Augmentation (02/29/2020 17:49:Kiana Machado RN) 57c. Non-Vertex Presentation A: Vertex (02/29/2020 17:49:Kiana Machado RN) 57d. Steroids - Lung Mat: None (02/29/2020 17:49:Kiana Machado RN) 57d. Steroids - Lung Mat: Not Applicable (02/29/2020 17:49:Kiana Machado RN) 57e. Antibiotics During Labor: 05/09/2020 15:40 (02/29/2020 17:49:Kiana Machado RN) 57f. Mat [place] or Temp >100.4: 99.2 (02/29/2020 17:49:Kiana Machado RN) 57g. Moderate/Heavy Meconium: Clear (05/09/2020 08:48:Kiana Machado RN) 57h. Intolerance of Labor: N/A (02/29/2020 17:49:Kiana Machado RN) : N/A (02/29/2020 17:49:Kiana Machado RN) 57i. Epidural/Spinal Anesthesia: Epidural (02/29/2020 17:49:Kiana Machado RN) Method of Delivery 58a. Forceps - Unsuccessful A: N/A (02/29/2020 17:49:Kiana Machado RN) 58b. Vacuum - Unsuccessful A: N/A (02/29/2020 17:49:Kiana Machado RN) 58c. Presentation at 58c. Presentation at - A : Vertex (02/29/2020 17:49:Kiana Machado RN) 58c. Presentation at - A : N/A (02/29/2020 17:49:Kiana Machado RN) 58c. Presentation at - A : Cephalic (02/29/2020 17:49:Kiana Machado RN) Final Route and Method of Del 58d. Baby A Route/Delivery: Vaginal (05/09/2020 16:25:Kiana Machado RN) 58e. Trial of Labor Attempted: No (02/29/2020 17:49:Kiana Machado RN) 58e. Trial of Labor Attempted A: N/A (02/29/2020 17:49:Kiana Machado RN) 58e. Trial of Labor Attempted B: N/A (02/29/2020 17:49:Kiana Machado RN) Maternal Morbidity 59b. 3rd or 4th Degree Lacs: None (02/29/2020 17:49:Kiana Carter, RN) Birthweight Baby A: 4140 (02/29/2020 17:49:Nati Crimalexandra RN) 60a. Pounds : 9 (02/29/2020 17:49:QS system process) 60b. Ounces: 2 (02/29/2020 17:49:QS system process) 61. GA at Delivery Baby A: 37.5 (02/29/2020 17:49:Kiana Carter RN) : Early Term- 37- 38.6 Weeks (02/29/2020 17:49:QS system process) 62a. 5 Minute Baby A: 9 (02/29/2020 17:49:QS system process)
--- NOTE | 2020-05-09 19:46 | Delivery Summary ---
Del Sum A-C Datetime Report Generated by CPN: 05/09/2020 19:46 DELIVERY PERSONNEL DELIVERY PERSONNEL: [id number] Delivery Doctor:: Karen Meyer MD Nurse Train Electronic Technician Certified:: Jonelle Martinez CNM Labor and Delivery Nurse:: Kiana Machado RNassembler lay ups Nurse:: Lauren Zee RN Collection Administrator:: RAJAN Tan Nurse Practitioner:: ANGELICA Alba Additional Personnel: : Nevaeh Pratt RN MATERNAL INFORMATION Delivery Anesthesia: Epidural Medications After Delivery: Pitocin 30 Units in 500ml NS/D5W; Cytotec 1000mcg Per Rectum/Vagina Delivery QBL: 250 Delivery QBL Comment: total QBL 690 provider aware Provider Comments: SVDVM over intact perineum. Head delivered OA to RUBINA with turtle sign, Armani position assumed, called for Dr. Meyer to help. Poor maternal effort and maternal habitus made repositioning impossible, pt was screaming and not pushing well. Suprapubic pressure applied, attempted to rotate counter clockwise, attempted to deliver post shoulder, attempted to reach post hand, Dr. Meyer in, delivered with upward and downward traction and slight clockwise rotation of post shoulder. Infant floppy, placed on maternal abd, cord clamped x2 cut, and handed off for NRP. Vaginal bleeding noted, prior to delivery of placenta, unable to visualize source so I manually delivered the placenta and then inspected the vaginal vault and perineum which was found to be intact. LABOR SUMMARY EDC: 05/25/2020 00:00 No. Babies in Womb: 1 Attempted: No Labor Anesthesia: Epidural LABOR INFORMATION Reason for Induction: Not Applicable Onset of Labor: 05/09/2020 06:00 Complete Dilatation: 05/09/2020 13:29 Oxytocin: Augmentation Group B Beta Strep: Positive Antibiotics # of Doses: 3 Antibiotics Time of Last Dose: 05/09/2020 15:40 Name of Antibiotic Given: PCN Steroids Given: None Reason Steroids Not Administered: Not Applicable MEMBRANES Membranes Rupture Method: Artificial Rupture of Membranes: 05/09/2020 05:00 Length of Rupture (hr): 11.42 Amniotic Fluid Color: Clear Amniotic Fluid Amount: Small Amniotic Fluid Odor: Normal STAGES OF LABOR Stage 1 hr: 7 Stage 1 min: 29 Stage 2 hr: 2 Stage 2 min: 56 Stage 3 hr: 0 Stage 3 min: 6 Total Time in Labor hr: 10 Total Time in Labor min: 31 VAGINAL DELIVERY Episiotomy: None Laceration #1: None Laceration Extension #1: N/A Laceration Repair: Not Applicable Sponge Count Correct: N/A Sharps Count Correct: N/A CSECTION DELIVERY Primary Indication: N/A Secondary Indication: N/A CSection Incidence: N/A Labor: N/A Elective: N/A CSection Incision: N/A BABY A INFORMATION Infant Delivery Date/Time: 05/09/2020 16:25 Method of Delivery: Vaginal Nurse Controlled Delivery: No Born in Route : No : N/A Forceps: N/A Vacuum Extraction: N/A Shoulder Dystocia : Yes SHOULDER DYSTOCIA BABY A Delivery of Head: 05/09/2020 16:23 Time Head to Delivery : 2.0 1st Intervention to Resolve: McRobert's Maneuver 2nd Intervention to Resolve: Gentle Attempt at Traction, Assisted by Maternal Expulsive Efforts 3rd Intervention to Resolve: Suprapubic Pressure 4th Intervention to Resolve: Garcia Maneuver 5th Intervention to Resolve: Posterior Arm Release 6th Intervention to Resolve: Gentle Attempt at Traction, Assisted by Maternal Expulsive Efforts 7th Intervention to Resolve: Suprapubic Pressure 8th Intervention to Resolve: Gracia Maneuver Verify NO Fundal Pressure: No Fundal Pressure Applied Arm Under Symphisis at Del: Right PRESENTATION/POSITION BABY A Presentation: Cephalic Cephalic Presentation: Vertex Vertex Position: Left Occipital Anterior Breech Presentation: N/A PLACENTA INFORMATION BABY A Placenta Delivery Time : 05/09/2020 16:31 Placenta Method of Delivery: Spontaneous Placenta Status: Delivered SCORES BABY A Heart Rate 1 min: >100 bpm Resp Effort 1 min: Good Cry Reflex Irritability 1 min: Cough or Sneeze or Pulls Away Muscle Tone 1 min: Flaccid Color 1 min: Body [place], Extremities Blue Resuscitation Effort 1 min: Tactile Stimulation; PPV/NCPAP SCORE 1 MIN: 7 Heart Rate 5 min: >100 bpm Resp Effort 5 min: Good Cry Reflex Irritability 5 min: Cough or Sneeze or Pulls Away Muscle Tone 5 min: Active Motion Color 5 min: Body [place], Extremities Blue SCORE 5 MIN: 9 INFANT INFORMATION BABY A Gestational Age at Delivery: 37.5 Gestational Status: Early Term- 37- 38.6 Weeks Outcome : Liveborn Infant Condition : Stable Infant Sex: Male IDENTIFICATION BABY A Verification Date/Time: 05/09/2020 17:01 ID Band Number: [id number] Mother's Name Verified: Yes Infant RN Verifying Infant: Nikita Zee, RN Additional Verifying Personnel: Mandi Machado RN WEIGHT/LENGTH BABY A Infant Birthweight (gm): 4140 Infant Weight (lb): 9 Infant Weight (oz): 2 Infant Length (in): 21.25 Length (cm): 53.98 CORD INFORMATION BABY A No. Cord Vessels: 3 Nuchal Cord : N/A Cord Blood Taken: Yes-For Eval (Mom's Blood Type - or O+) Infant Suction: None ASSESSMENT BABY A Complications: Shoulder Dystocia Skin to Skin: No Skin to Skin Time (min): 0 Mortgage Loan Originator/ALS Called : Yes Care By: Fabio Simth RN/ Brit De La Cruz DIRECTOR OF TAX SERVICES Transferred To: Nursery BABY B INFORMATION : N/A SIGNATURES Assignment: Karen Meyer MD Signature: with User ID: [email or web address] : with User ID: [email or web address] : I was personally available for consultation and serving as supervising physician for the MLP.
[2020-05-09] MEDS ORDERED: IBUPROFEN 800 MG TABLET ONE (22:31)
[2020-05-09] MEDS: IBUPROFEN 800 MG TABLET PO SCH (22:34)
[2020-05-10] MEDS ORDERED: ACETAMINOPHEN WITH CODEINE #3 TABLET ONE ×2 (03:16→07:29)
[2020-05-10] MEDS: ACETAMINOPHEN WITH CODEINE #3 TABLET PO PRN ×3 (03:17→23:51)
[2020-05-10] MEDS: FAMOTIDINE 20 MG TABLET PO SCH ×3 (04:59→21:31)
[2020-05-10] MEDS: PENICILLIN G POTASSIUM 2,500,000 UNIT in DEXTROSE 5%-WATER 50 ML IV SCH ×2 (05:00→11:14)
[2020-05-10] MEDS ORDERED: MAGNESIUM SULFATE 20 GM/500 ML RTUINJ IV ONE (06:09)
[2020-05-10] MEDS ORDERED: IBUPROFEN 800 MG TABLET ONE (07:30)
[2020-05-10] MEDS: IBUPROFEN 800 MG TABLET PO SCH ×3 (07:42→21:31)
[2020-05-10 08:12] LABS: HEMATOCRIT 29.5 % (36.0-47.0); HEMOGLOBIN 9.8 g/dL (12.0-15.5); MEAN CORPUSCULAR HEMOGLOBIN 27.7 pg (27.0-33.4); MEAN CORPUSCULAR HGB CONC 33.1 g/dL (32.0-36.0); MEAN CORPUSCULAR VOLUME 84 fl (80-97); PLATELET COUNT 298 10^3/uL (150-450); RED BLOOD COUNT 3.52 10^6/uL (3.72-5.28); RED CELL DISTRIBUTION WIDTH 15.7 % (11.5-14.0); WHITE BLOOD COUNT 11.1 10^3/uL (4.0-10.5)
[2020-05-10] MEDS: DOCUSATE SODIUM 100 MG CAPSULE PO SCH ×2 (10:36→18:11)
[2020-05-10] MEDS: SENNOSIDES/DOCUSATE 8.6-50 MG 1 EACH TABLET PO SCH (10:36)
[2020-05-10] MEDS: PRENATAL VITAMIN W DHA CAPSULE PO SCH (10:36)
[2020-05-10] MEDS: FERROUS SULFATE 325 MG TABLET PO SCH ×2 (10:36→18:11)
--- NOTE | 2020-05-10 12:36 | PDOC PROGRESS REPORT ---
Subjective-OB Progress Note for:: 05/10/20 - PP Day#1, pt just transferred over to PP floor, had been on Magnessium Sulfate, now has been d/c'd. Pt doing well, UOB, voided, , No c/o headache, O+ Physical Exam (OB) Vital Signs: Temp Pulse Resp BP Pulse Ox 98.3 F 86 16 139/82 H 100 05/10/20 11:58 05/10/20 11:58 05/10/20 11:58 05/10/20 11:58 05/10/20 11:58 Intake & Output 05/09/20 05/10/20 05/11/20 06:59 06:59 06:59 Output Total 100 Balance -100 Weight 136.2 kg - General General Appearance: Appears well, Alert In distress: None - PIH/Pre-Eclampsia DTR's: 2 + Clonus: Negative Headache: Absent Epigastric Pain: No Visual Changes: No - Maternal Morbidity 59. Maternal Morbidity (serious complications experinced by the mother associated with labor and delivery: None of the above - Lochia Lochia Amount: Small 10-25 ml Lochia Color: Rubra/Red - Abdomen Description: Soft Hernia Present: No Fundal Description: Firm, Midline Fundal Height: u/u - u/2 - Respiratory Respiratory Status: No respiratory distress - Genitourinary Genitourinary Note: voiding - Extremities Upper extremity: Edema Lower extremities: Edema - Neurological Cognition: Normal Orientation: AAOx4 - Psychological Associated symptoms: Normal affect, Normal mood Objective-Diagnostic Laboratory: 05/10/20 07:43 05/09/20 19:01 05/09/20 05/09/20 05/10/20 19:01 19:01 07:43 WBC 14.8 H 11.1 H RBC 3.57 L 3.52 L Hgb 10.0 L 9.8 L Hct 29.9 L 29.5 L MCV 84 84 MCH 27.9 27.7 MCHC 33.3 33.1 RDW 15.2 H 15.7 H Plt Count 287 298 Seg Neutrophils % 90.0 H Sodium 134.3 L Potassium 4.4 Chloride 108 H Carbon Dioxide 16 L Anion Gap 10 BUN 7 Creatinine 0.71 Est GFR ( Amer) > 60 Glucose 152 H Uric Acid 6.2 Calcium 8.6 Total Bilirubin 0.7 AST 25 Alkaline Phosphatase 185 H Total Protein 5.4 L Albumin 2.8 L Assessment and Plan(PN) - Assessment and Plan (1) Shoulder dystocia during labor and delivery, delivered Is this a current diagnosis for this admission?: Yes (2) Pre-eclampsia Qualifiers: Trimester: third trimester Qualified Code(s): O14.93 - Unspecified pre-eclampsia, third trimester Is this a current diagnosis for this admission?: Yes (3) Gestational diabetes mellitus (GDM) in childbirth, diet controlled Is this a current diagnosis for this admission?: Yes (4) Incompetent cervix in , antepartum Is this a current diagnosis for this admission?: Yes (5) Vaginal delivery Is this a current diagnosis for this admission?: Yes Plan:: ambulation encouraged, routine PP orders, BP precautions reviewed. - Time Spent with Patient Time with patient: Less than 15 minutes Medications reviewed and adjusted accordingly: Yes - Disposition Anticipated Discharge Disposition: Home, Self Care Anticipated Discharge Timeframe: within 48 hours
[2020-05-11] MEDS: IBUPROFEN 800 MG TABLET PO SCH ×2 (05:26→15:35)
[2020-05-11] MEDS: FERROUS SULFATE 325 MG TABLET PO SCH (10:01)
[2020-05-11] MEDS: DOCUSATE SODIUM 100 MG CAPSULE PO SCH (10:01)
[2020-05-11] MEDS: PRENATAL VITAMIN W DHA CAPSULE PO SCH (10:01)
[2020-05-11] MEDS: FAMOTIDINE 20 MG TABLET PO SCH (10:01)
[2020-05-11] MEDS: SENNOSIDES/DOCUSATE 8.6-50 MG 1 EACH TABLET PO SCH (10:01)
[2020-05-11 11:59] VITALS: BP 133/79
--- NOTE | 2020-05-11 12:27 | PDOC DISCHARGE SUMMARY ---
Impression - Admit/DC Date/PCP Admission Date/Primary Care Provider: 05/09/20 06:59 DAVIAN ORTEGA PA-C Discharge Date: 05/11/20 - PP Day #2, pt doing well, denies headache or blurred vision. Baby needs to stay and remain on the mika-lights, pt may Nest overnight . O+, Rubella Immune, IOL for Pre-eclampsia, shoulder dystocia at delivery. - Discharge Diagnosis (1) Shoulder dystocia during labor and delivery, delivered Is this a current diagnosis for this admission?: Yes (2) Pre-eclampsia Is this a current diagnosis for this admission?: Yes (3) Gestational diabetes mellitus (GDM) in childbirth, diet controlled Is this a current diagnosis for this admission?: Yes (4) Incompetent cervix in , antepartum Is this a current diagnosis for this admission?: Yes (5) Vaginal delivery Is this a current diagnosis for this admission?: Yes - Additional Information Resuscitation Status: Full Code Discharge Diet: As Tolerated, Regular Discharge Activity: Activity As Tolerated, No Lifting Over 10 Pounds, Pelvic Rest Referrals: DAVIAN ORTEGA PA-C [Primary Care Provider] - Prescriptions: Ibuprofen [Motrin 800 mg Tablet] 800 mg PO Q8 #60 tablet Home Medications: Pnv No.95/Ferrous Fum/Folic AC [ Multivitamin Tablet] 1 each PO DAILY 10/10/17 Ibuprofen [Motrin 800 mg Tablet] 800 mg PO Q8 #60 tablet 05/11/20 Vit/Dha [ Multi + Dha Capsule] 1 cap PO DAILY capsule 05/11/20 HPI Reason(s) for Admission: Induction of Labor Admission Note: Pre-eclampsia Procedures: Ultrasound Intrapartum Procedure(s): Spontaneous Vaginal Delivery - Pt had been on Magnesium Sulfate while on Labor and Delivery Complication(s): Other - shoulder dystocia Hospital Course 59. Maternal Morbidity (serious complications experinced by the mother associated with labor and delivery: None of the above Results Laboratory Results: WBC 11.1 10^3/uL (4.0-10.5) H 05/10/20 07:43 RBC 3.52 10^6/uL (3.72-5.28) L 05/10/20 07:43 Hgb 9.8 g/dL (12.0-15.5) L 05/10/20 07:43 Hct 29.5 % (36.0-47.0) L 05/10/20 07:43 MCV 84 fl (80-97) 05/10/20 07:43 MCH 27.7 pg (27.0-33.4) 05/10/20 07:43 MCHC 33.1 g/dL (32.0-36.0) 05/10/20 07:43 RDW 15.7 % (11.5-14.0) H 05/10/20 07:43 Plt Count 298 10^3/uL (150-450) 05/10/20 07:43 Lymph % (Auto) 6.0 % (13-45) L 05/09/20 19:01 [place] % (Auto) 3.9 % (3-13) 05/09/20 19:01 Eos % (Auto) 0.0 % (0-6) 05/09/20 19:01 Baso % (Auto) 0.1 % (0-2) 05/09/20 19:01 Absolute Neuts (auto) 13.3 10^3/uL (1.7-8.2) H 05/09/20 19:01 Absolute Lymphs (auto) 0.9 10^3/uL (0.5-4.7) 05/09/20 19:01 Absolute Monos (auto) 0.6 10^3/uL (0.1-1.4) 05/09/20 19:01 Absolute Eos (auto) 0.0 10^3/uL (0.0-0.6) 05/09/20 19:01 Absolute Basos (auto) 0.0 10^3/uL (0.0-0.2) 05/09/20 19:01 Seg Neutrophils % 90.0 % (42-78) H 05/09/20 19:01 Sodium 134.3 mmol/L (137-145) L 05/09/20 19:01 Potassium 4.4 mmol/L (3.6-5.0) 05/09/20 19:01 Chloride 108 mmol/L (98-107) H 05/09/20 19:01 Carbon Dioxide 16 mmol/L (22-30) L 05/09/20 19:01 Anion Gap 10 (5-19) 05/09/20 19:01 BUN 7 mg/dL (7-20) 05/09/20 19: Creatinine 0.71 mg/dL (0.52-1.25) 05/09/20 19: Est GFR ( Amer) > 60 (>60) 05/09/20 19: Est GFR (MDRD) Non-Af > 60 (>60) 05/09/20 19: Glucose 152 mg/dL (75-110) H 05/09/20 19: Uric Acid 6.2 mg/dL (2.5-6.2) 05/09/20 19: Calcium 8.6 mg/dL (8.4-10.2) 05/09/20 19: Total Bilirubin 0.7 mg/dL (0.2-1.3) 05/09/20 19: Direct Bilirubin 0.2 mg/dL (0.0-0.4) 05/09/20 19:01 Neonat Total Bilirubin Not Reportable 05/09/20 19: Neonat Direct Bilirubin Not Reportable 05/09/20 19: Neonat Indirect Bili Not Reportable 05/09/20 19:01 AST 25 U/L (14-36) 05/09/20 19: ALT 10 U/L (<35) 05/09/20 19: Alkaline Phosphatase 185 U/L (38-126) H 05/09/20 19: Lactate Dehydrogenase 209 U/L (120-246) 05/09/20 19: Total Protein 5.4 g/dL (6.3-8.2) L 05/09/20 19: Albumin 2.8 g/dL (3.5-5.0) L 05/09/20 19: Urine Color YELLOW 05/09/20 06:20 Urine Appearance SLIGHTLY-CLOUDY 05/09/20 06:20 Urine pH 6.0 (5.0-9.0) 05/09/20 06:20 Ur Specific [place] 1.014 05/09/20 06:20 Urine Protein 30 mg/dL (NEGATIVE) H 05/09/20 06:20 Urine Glucose (UA) NEGATIVE mg/dL (NEGATIVE) 05/09/20 06:20 Urine Ketones TRACE mg/dL (NEGATIVE) H 05/09/20 06:20 Urine Blood NEGATIVE (NEGATIVE) 05/09/20 06:20 Urine Nitrite NEGATIVE (NEGATIVE) 05/09/20 06:20 Urine Bilirubin NEGATIVE (NEGATIVE) 05/09/20 06:20 Urine Urobilinogen 2.0 mg/dL (<2.0) H 05/09/20 06:20 Ur Leukocyte Esterase NEGATIVE (NEGATIVE) 05/09/20 06:20 Urine Ascorbic Acid NEGATIVE (NEGATIVE) 05/09/20 06:20 Membranes Rupture POSITIVE (NEGATIVE) H 05/09/20 06:28 Urine Opiates Screen NEGATIVE 05/09/20 06:20 Urine Methadone Screen NEGATIVE 05/09/20 06:20 Ur Barbiturates Screen NEGATIVE 05/09/20 06:20 Ur Phencyclidine Scrn NEGATIVE 05/09/20 06:20 Ur Amphetamines Screen NEGATIVE 05/09/20 06:20 U Benzodiazepines Scrn NEGATIVE 05/09/20 06:20 Urine Cocaine Screen NEGATIVE 05/09/20 06:20 U Marijuana (THC) Screen NEGATIVE 05/09/20 06:20 RPR NONREACTIVE (NONREACTIVE) 05/09/20 07:28 Blood Type O POSITIVE 05/09/20 07:28 Antibody Screen NEGATIVE 05/09/20 07:28 Plan Plan of Treatment: d/c home, f/up with [facility] in one week for BP check. BP precautions reviewed Time Spent: Less than 30 Minutes
== END 2020-05-11 17:55 | disposition home or self-care (01) | DRG 807 ==
LOC: LC 06:11 → LR 06:59 → 2S 05-10 09:57
PROVIDERS: ADMIT Obstetrics & Gynecology; ATTEND Obstetrics & Gynecology
PROC: 10E0XZZ Delivery of Products of Conception, External Approach (ICD-10-PCS; principal; 2020-05-09)
DX: O66.0 Obstructed labor due to shoulder dystocia (principal); Z37.0 Single live birth; O75.81 Maternal exhaustion complicating labor and delivery; O99.824 Streptococcus B carrier state complicating childbirth; O24.420 Gestational diabetes mellitus in childbirth, diet controlled; O14.94 Unspecified pre-eclampsia, complicating childbirth; O99.214 Obesity complicating childbirth; E66.9 Obesity, unspecified; Z98.84 Bariatric surgery status; Z3A.37 37 weeks gestation of pregnancy; Z87.891 Personal history of nicotine dependence
CPT/HCPCS: 1967; 36415; 80053; 80307; 81005; 83615; 84112; 84550; 85025; 85027; 86592; 86850; 86900; 86901; J0360; J2405; J2540; J2550; J2590; J2795; J3010; J3475; J3490; J7060